=== PATIENT | male | born 1955 | race Caucasian/White ===

== ENCOUNTER 2017-09-29 09:27 | Outpatient (CLI) | payer BC ==
[~2017-09-29 09:27] MED LIST: AMIT-106 PO; ATOR40TA PO; CHOL5000 PO; GABA800T2 PO; HYDR-565 PO; MULT-38 PO; OMEP20TA5 PO; PRAZ5CAP PO; TURM500C4 PO
[2017-09-29 09:29] VITALS: BP 134/73
== END 2017-09-29 09:45 | disposition home or self-care (01) ==
LOC: ORTHO 09:27
PROVIDERS: ATTEND Nurse Practitioner Family
DX: S52.502G Unspecified fracture of the lower end of left radius, subsequent encounter for closed fracture with delayed healing (principal); E78.00 Pure hypercholesterolemia, unspecified; F41.9 Anxiety disorder, unspecified; X58.XXXD Exposure to other specified factors, subsequent encounter
CPT/HCPCS: 73100

== ENCOUNTER 2017-10-29 08:56 | Outpatient (CLI) | payer BC ==
[2017-10-29 08:56] VITALS: BP 130/73
== END 2017-10-29 09:25 | disposition home or self-care (01) ==
LOC: ORTHO 08:56
PROVIDERS: ATTEND Nurse Practitioner Family
DX: S52.502G Unspecified fracture of the lower end of left radius, subsequent encounter for closed fracture with delayed healing (principal); E78.00 Pure hypercholesterolemia, unspecified; F12.90 Cannabis use, unspecified, uncomplicated; F41.9 Anxiety disorder, unspecified; W54.0XXD Bitten by dog, subsequent encounter
CPT/HCPCS: 73110

== ENCOUNTER 2017-12-17 09:31 | Outpatient (CLI) | payer BC ==
[2017-12-17 09:37] VITALS: BP 129/77
== END 2017-12-17 10:05 | disposition home or self-care (01) ==
LOC: ORTHO 09:31
PROVIDERS: ATTEND Nurse Practitioner Family
DX: S52.502D Unspecified fracture of the lower end of left radius, subsequent encounter for closed fracture with routine healing (principal); F12.90 Cannabis use, unspecified, uncomplicated; E78.00 Pure hypercholesterolemia, unspecified; F41.9 Anxiety disorder, unspecified; Z98.890 Other specified postprocedural states; W54.0XXD Bitten by dog, subsequent encounter
CPT/HCPCS: 73110; 99212

== ENCOUNTER 2020-05-01 12:53 | Emergency (ER) | payer BC ==
[~2020-05-01] VITALS: Ht 180.3 cm; Wt 75.0 kg
[~2020-05-01 12:53] MED LIST changes: -AMIT-106 PO; +AMIT25TA9 PO; +GABA800T11 PO; -GABA800T2 PO; +HYDR-4353 PO; -HYDR-565 PO; +LIDOcaine 1% 30ml preserv. free vial ONE
[2020-05-01 13:02] VITALS: BP 106/53
[2020-05-01] MEDS ORDERED: bacitracin 15gm ointment TP ONE (15:05)
[2020-05-01] MEDS ORDERED: CEPH250T PO (16:39)
== END 2020-05-01 17:11 | disposition home or self-care (01) ==
LOC: ER 12:54
DX: S61.210A Laceration without foreign body of right index finger without damage to nail, initial encounter (principal); S61.212A Laceration without foreign body of right middle finger without damage to nail, initial encounter; S61.214A Laceration without foreign body of right ring finger without damage to nail, initial encounter; S61.216A Laceration without foreign body of right little finger without damage to nail, initial encounter; G89.29 Other chronic pain; K21.9 Gastro-esophageal reflux disease without esophagitis; F12.90 Cannabis use, unspecified, uncomplicated; Z79.899 Other long term (current) drug therapy; W26.8XXA Contact with other sharp object(s), not elsewhere classified, initial encounter; Y93.89 Activity, other specified; Y92.89 Other specified places as the place of occurrence of the external cause; Y99.8 Other external cause status
CPT/HCPCS: 12002; 99283; J2001

== ENCOUNTER 2020-05-11 10:36 | Emergency (ER) | payer BC ==
[~2020-05-11] VITALS: Ht 180.3 cm; Wt 78.0 kg
[~2020-05-11 10:36] MED LIST changes: -LIDOcaine 1% 30ml preserv. free vial ONE
[2020-05-11 10:46] VITALS: BP 111/57
== END 2020-05-11 11:55 | disposition home or self-care (01) ==
LOC: ER 10:36
DX: S61.212D Laceration without foreign body of right middle finger without damage to nail, subsequent encounter (principal); M79.89 Other specified soft tissue disorders; K21.9 Gastro-esophageal reflux disease without esophagitis; G89.29 Other chronic pain; F12.90 Cannabis use, unspecified, uncomplicated; Z98.890 Other specified postprocedural states; Z79.899 Other long term (current) drug therapy; W45.8XXD Other foreign body or object entering through skin, subsequent encounter
CPT/HCPCS: 99281

== ENCOUNTER 2023-07-24 10:10 | Day surgery (SDC) | payer BC, MEDICARE ==
[2023-07-23 10:36] LABS: BASOPHILS # (AUTO) 0.1 X10'3 (0-0.2); EOSINOPHILS # (AUTO) 0.1 X10'3 (0-0.9); EOSINOPHILS % (AUTO) 1.2 % (0-6); HEMATOCRIT 45.9 % (42.0-52.0); LYMPHOCYTES # (AUTO) 1.8 X10'3 (1.1-4.8); LYMPHOCYTES % (AUTO) 18.2 % (21-51); MEAN CORPUSCULAR HEMOGLOBIN 29.4 PG (27.0-31.0); MEAN CORPUSCULAR HGB CONC 32.6 g/dL (33.0-36.5); MEAN CORPUSCULAR VOLUME 90.3 FL (78-98); MONOCYTES # (AUTO) 0.8 X10'3 (0-0.9); MONOCYTES % (AUTO) 8.1 % (2-12); NEUTROPHILS # (AUTO) 7.1 X10'3 (1.8-7.7); NEUTROPHILS % (AUTO) 71.5 % (42-75); PLATELET COUNT 245 X10'3 (140-440); RED BLOOD COUNT 5.08 X10'6 (4.70-6.10); RED CELL DISTRIBUTION WIDTH 14.5 % (11.5-14.5)
[2023-07-23 10:47] LABS: APTT 27 SECONDS (22-32); PROTHROMBIN TIME 10.3 SECONDS (9.0-12.0)
[2023-07-23 10:48] LABS: ANION GAP 6 (8-16); BLOOD UREA NITROGEN 22 MG/DL (7-18); BUN/CREATININE RATIO 15.4 (10.0-20.0); CALCIUM 9.8 MG/DL (8.5-10.1); CHLORIDE 104 MMOL/L (99-107); CREATININE 1.43 MG/DL (0.60-1.10); GLUCOSE 142 MG/DL (70-104); POTASSIUM 4.9 MMOL/L (3.5-5.1); SODIUM 141 MMOL/L (135-145); eGFR 49 ML/MIN
[2023-07-24] VITALS (10 sets, daily range): BP systolic 107–140; BP diastolic 64–73; PULSE 59–67; RESP 12–18; TEMP 97.9; O2SAT 92–98
[~2023-07-24] VITALS: Ht 180.3 cm; Wt 70.6 kg
[~2023-07-24 10:10] MED LIST changes: +OMEP20TA43 PO; -OMEP20TA5 PO
[2023-07-24] MEDS ORDERED: acetylcysteine 200 MG/ml 4ml vial PO PRN (10:25)
[2023-07-24] MEDS ORDERED: normal saline 1,000 ML IV SCH (10:25)
[2023-07-24] MEDS ORDERED: diphenhydrAMINE 25mg capsule PO PRN (10:25)
[2023-07-24] MEDS ORDERED: LORazepam 0.5 MG tablet PO PRN (10:25)
[2023-07-24] MEDS ORDERED: OMEP40CA21 PO (10:42)
[2023-07-24] MEDS ORDERED: ATOR20TA66 PO (10:42)
[2023-07-24] MEDS ORDERED: NORT25CA PO (10:42)
[2023-07-24] MEDS ORDERED: PRAZ5CAP2 PO (10:42)
[2023-07-24] MEDS ORDERED: MELO-102 PO (10:42)
[2023-07-24] MEDS ORDERED: verapamil 2.5 mg/ml inj IV ONE (11:25)
[2023-07-24] MEDS ORDERED: iohexol 350MG/ML 100ml bottle IV ONE ×2 (11:25→12:56)
[2023-07-24] MEDS ORDERED: fentaNYL/PF 50MCG/1 ML 2ML syringe ONE ×2 (11:25→12:47)
[2023-07-24] MEDS ORDERED: LIDOcaine 1% (10mg/ml) 2ml vial ONE (11:25)
[2023-07-24] MEDS ORDERED: iohexol 350 MG/ML 50ML vial IV ONE (11:25)
[2023-07-24] MEDS ORDERED: midazolam 1 mg/ML 2ml injection ONE ×2 (11:25→12:48)
[2023-07-24] MEDS ORDERED: heparin 1,000unit/ml 10ml vial 10 ML ONE (11:25)
[2023-07-24] MEDS ORDERED: nitroGLYCERIN 500mcg/5mL D5W 5 ML IV ONE ×2 (11:26→11:52)
[2023-07-24] MEDS ORDERED: sodium bicarbonate 1meq/ml syr 150 ML in dextrose 5%-water 1,000 ML IV ONE (12:30)
[2023-07-24] MEDS ORDERED: LIDOcaine 1% (10mg/ml)w/preservative inj. 20ml MDV ONE (12:44)
[2023-07-24 15:16] LABS: ISTAT HGB ART 13.9 g/dl (14.0-17.9); ISTAT Hct ART 41 %PCV (42-52); ISTAT O2 SATURATION ARTERIAL 95 % (95-98); ISTAT SOURCE ART
[2023-07-27 07:01] LABS: ISTAT HGB MIX 13.6 g/dl (14.0-17.9); ISTAT Hct MIX 40 %PCV (42-52); ISTAT O2 SATURATION MIX VENOUS 63 % (60-80); ISTAT SOURCE VEN
== END 2023-07-24 17:20 | disposition home or self-care (01) ==
LOC: SSTAY O 10:10
PROVIDERS: ATTEND Internal Medicine Cardiovascular Disease
DX: I35.2 Nonrheumatic aortic (valve) stenosis with insufficiency (principal); R06.02 Shortness of breath
CPT/HCPCS: 36415; 71250; 76937; 80048; 82803; 85014; 85025; 85610; 85730; 93005; 93460; 93567; 99152; 99153; J1644; J2250; J3010; J3490; Q9967; A6258; A6402; C1725; C1751; C1760; C1769; C1894